=== PATIENT | female | born 1975 | race Caucasian/White ===

== ENCOUNTER 2017-01-10 06:48 | Emergency (ER) | payer BC ==
[~2017-01-10] VITALS: Ht 180.3 cm; Wt 77.3 kg
[2017-01-10] MEDS ORDERED: XANAX0.5 M1 PO (06:56)
[2017-01-10 08:04] LABS: BASO # 0.1 (0.02-0.10); EOS # 0.2 (0.04-0.40); EOS % 3.4 % (1.0-5.0); HEMATOCRIT 44.3 % (37.0-47.0); LYMPH# 1.4 (1.50-4.00); MEAN CELL VOLUME 95 fl (78-100); MEAN CORPUSCULAR HEMOGLOBIN 32 pg (27-31); MEAN CORPUSCULAR HGB CONC 34 g/dL (33-37); MEAN PLATELET VOLUME 11.3 fl (7.4-10.4); MONO # 0.4 (0.20-0.80); NEU # 4.2 (1.40-6.50); PLATELET COUNT 376 K/mm3 (130-400); RED BLOOD COUNT 4.67 M/mm3 (4.10-5.30); RED CELL DISTRIBUTION WIDTH 12.6 % (11.5-14.5); WHITE BLOOD COUNT 6.3 K/mm3 (4.8-10.8)
[2017-01-10 08:11] LABS: ALBUMIN 4.3 g/dL (3.5-5.0); BUN/CREATININE RATIO 12.1 (6.0-26.0); POTASSIUM 4.5 mmol/L (3.6-5.0); TOTAL PROTEIN 7.2 g/dL (6.3-8.2)
[2017-01-10 08:24] LABS: D-DIMER 0.42 mg/L FEU (0.15-0.50)
[2017-01-10 09:09] LABS: PH-URINE 5.5 (5.0 - 8.0); URINE APPEARANCE CLEAR; URINE BILIRUBIN NEGATIVE (NEGATIVE); URINE BLOOD 250 ery/uL (NEGATIVE); URINE COLOR YELLOW; URINE GLUCOSE NEGATIVE (NEGATIVE); URINE KETONE NEGATIVE (NEGATIVE); URINE LEUKOCYTE ESTERASE NEGATIVE (NEGATIVE); URINE NITRATE NEGATIVE (NEGATIVE); URINE PROTEIN(semi-quant) TRACE mg/dL (NEGATIVE); URINE UROBILINOGEN NORMAL (NORMAL); URINE WBC 0-1 /hpf (0-3)
[2017-01-10 10:38] VITALS: BP 142/95
== END 2017-01-10 10:00 | disposition home or self-care (01) ==
LOC: ED 06:48
PROVIDERS: Physician Assistant
DX: F43.0 Acute stress reaction (principal); R56.9 Unspecified convulsions; F41.9 Anxiety disorder, unspecified; F17.290 Nicotine dependence, other tobacco product, uncomplicated